=== PATIENT | female | born 1980 | race Caucasian/White ===

== ENCOUNTER 2017-02-02 08:32 | Emergency (ER) | payer OTHER ==
[~2017-02-02] VITALS: Ht 170.2 cm; Wt 84.5 kg
[~2017-02-02 08:32] MED LIST: CIPRO500 MG PO; FLOMAX0.4 MG PO; FOLIC ACID0.4 MG PO; MOTRIN800 MG PO; OMEPRAZOLE40 M1 PO; PERCOCET 5/31 TABLET PO; PRENATAL TABLE1 EAC3 PO; PRILOSEC20 MG PO; VALTREX1000 MG PO; ZOFRAN ODT4 MG PO
[2017-02-02] MEDS ORDERED: HUMIRA40 MG/0.8 SC (09:57)
[2017-02-02] MEDS ORDERED: DOXYCYCLINE HY100 MG PO (09:57)
[2017-02-02] MEDS ORDERED: RITALIN LA30 MG PO (09:58)
[2017-02-02] MEDS ORDERED: BRINTELLIX10 MG PO (09:58)
[2017-02-02] MEDS ORDERED: METHIMAZOLE5 MG PO (09:59)
[2017-02-02] MEDS ORDERED: MEDROL DOSEPAK4 MG PO (11:17)
[2017-02-02 11:42] VITALS: BP 134/94
== END 2017-02-02 11:43 | disposition home or self-care (01) ==
LOC: EME 08:32
DX: L12.0 Bullous pemphigoid (principal); Z87.891 Personal history of nicotine dependence
CPT/HCPCS: 99281; 99284; J7512

== ENCOUNTER 2017-08-22 19:36 | Emergency (ER) | payer OTHER ==
[~2017-08-22] VITALS: Ht 170.2 cm; Wt 89.5 kg
[~2017-08-22 19:36] MED LIST changes: +BRINTELLIX10 MG PO; +DOXYCYCLINE HY100 MG PO; +HUMIRA40 MG/0.8 SC; +MEDROL DOSEPAK4 MG PO; +METHIMAZOLE5 MG PO; +RITALIN LA30 MG PO
[2017-08-22 19:52] VITALS: BP 130/67
[2017-08-22 19:54] VITALS: BP 127/65
[2017-08-22 21:48] LABS: HEMATOCRIT 35.3 % (36.0-46.0); HEMOGLOBIN 11.9 G/DL (11.9-15.5); MCH 29.5 PG (29.0-34.0); MCHC 33.7 G/DL (30.0-36.0); MCV 87.4 FL (83-99); PLATELET COUNT 263 K/uL (156-360); RBC DIS.WIDTH-CV 13.2 % (11.8-14.6); RBC DIS.WIDTH-SD 41.2 % (39-53); RED BLOOD COUNT 4.04 M/uL (3.80-5.20)
[2017-08-22 21:51] LABS: CHLORIDE 108 mEq/L (99-109); POTASSIUM 3.5 mEq/L (3.7-5.4); SODIUM 134 mEq/L (136-147)
[2017-08-22 21:53] LABS: GLUCOSE 89 mg/dL (70-99)
[2017-08-22 21:57] LABS: CREATININE 0.6 mg/dL (0.6-1.3); GFR ESTIMATE (CALCULATED) > 59 mL/min/
[2017-08-22 21:58] LABS: UREA NITROGEN (BUN) 7 mg/dL (9-23)
[2017-08-22 22:05] LABS: QUANTITATIVE HCG 14027.1 MIU/ML
[2017-08-22 22:26] LABS: ALBUMIN 3.3 g/dL (3.2-4.8)
[2017-08-22 22:28] LABS: TOTAL PROTEIN 7.4 g/dL (6.4-8.3)
[2017-08-22 22:30] LABS: TOTAL BILIRUBIN 0.2 mg/dL (0.0-1.0)
[2017-08-22 22:31] LABS: ALKALINE PHOSPHATASE 96 IU/L (3-129)
[2017-08-22 22:34] LABS: ALT (GPT) 12 IU/L (3-49); AST (GOT) 13 IU/L (2-34); DIRECT BILIRUBIN 0.2 mg/dL (0.0-0.3)
[2017-08-22 23:12] LABS: APPEARANCE CLEAR ((CLEAR)); BILIRUBIN NEGATIVE; BLOOD SMALL; COLOR YELLOW ((YELLOW)); GLUCOSE (STRIP) NEGATIVE; KETONES 5; LEUKOCYTES LARGE; NITRITE NEGATIVE; PROTEIN (STRIP) NEGATIVE; SPECIFIC GRAVITY 1.009 (1.000-1.030); UROBILINOGEN 0.2 MG/DL (0.2-1.0)
[2017-08-22 23:32] LABS: BACTERIA RARE /HPF; EPITHELIAL CELLS RARE /HPF; MUCUS TRACE /LPF; UCUL ADDED? YES
[2017-08-22] MEDS ORDERED: REGLAN10 MG PO (23:46)
[2017-08-23 00:06] VITALS: BP 118/51
== END 2017-08-23 00:13 | disposition home or self-care (01) ==
LOC: LDRP-OP 19:36 → EME 19:36 → 2WEST 19:38 → LDRP-OP 19:38 → EDSTATUS 20:42 → EME 08-23 00:13
PROVIDERS: Nurse Practitioner Family
DX: O21.2 Late vomiting of pregnancy (principal); O99.613 Diseases of the digestive system complicating pregnancy, third trimester; K59.00 Constipation, unspecified; R10.84 Generalized abdominal pain; Z87.442 Personal history of urinary calculi; Z88.0 Allergy status to penicillin; Z87.891 Personal history of nicotine dependence; Z3A.28 28 weeks gestation of pregnancy
CPT/HCPCS: 59025; 80048; 80053; 80076; 81003; 84702; 85027; 87077; 87086; 87186; J2405; J7030

== ENCOUNTER 2017-10-01 10:08 | Outpatient (CLI) | payer OTHER ==
[~2017-10-01 10:08] MED LIST changes: +REGLAN10 MG PO
[2017-10-01 10:16] VITALS: BP 139/73
[2017-10-01 10:51] LABS: APPEARANCE CLOUDY ((CLEAR)); BILIRUBIN NEGATIVE; BLOOD LARGE; COLOR YELLOW ((YELLOW)); GLUCOSE (STRIP) NEGATIVE; KETONES 5; LEUKOCYTES LARGE; NITRITE NEGATIVE; PROTEIN (STRIP) 30; SPECIFIC GRAVITY 1.015 (1.000-1.030); UROBILINOGEN 0.2 MG/DL (0.2-1.0)
[2017-10-01 11:18] LABS: BACTERIA RARE /HPF; EPITHELIAL CELLS 1+ /HPF; MUCUS NONE SEEN /LPF; RED BLOOD CELLS TNTC /HPF (0-5); UCUL ADDED? YES
[2017-10-01 11:41] LABS: BASOPHIL (%) 0.5 % (0-1); BASOPHIL COUNT 0.1 K/uL (0-0.1); EOSINOPHIL (%) 0.8 % (0-5); EOSINOPHIL COUNT 0.1 K/uL (0-0.3); HEMATOCRIT 33.1 % (36.0-46.0); HEMOGLOBIN 10.7 G/DL (11.9-15.5); IMMATURE GRANULOCYTE (%) 1.9 % (0.0-0.7); LYMPHOCYTE (%) 13.6 % (15-42); LYMPHOCYTE COUNT 2.1 K/uL (1.0-2.8); MCH 28.5 PG (29.0-34.0); MCHC 32.3 G/DL (30.0-36.0); MCV 88.3 FL (83-99); MONOCYTE (%) 7.3 % (3-12); MONOCYTE COUNT 1.1 K/uL (0-0.8); NEUTROPHIL (%) 75.9 % (45-76); NEUTROPHIL COUNT 11.8 K/uL (1.8-6.4); PLATELET COUNT 240 K/uL (156-360); RBC DIS.WIDTH-CV 13.4 % (11.8-14.6); RBC DIS.WIDTH-SD 43.8 % (39-53); RED BLOOD COUNT 3.75 M/uL (3.80-5.20); WHITE BLOOD COUNT 15.6 K/uL (4.1-10.2)
[2017-10-01 15:08] VITALS: BP 131/74
[2017-10-01 18:21] VITALS: BP 124/55
[2017-10-01 19:51] VITALS: BP 108/56
[2017-10-01 20:57] VITALS: BP 114/54
[2017-10-01 23:29] VITALS: BP 112/55
[2017-10-02 02:59] VITALS: BP 100/52
[2017-10-02 07:10] LABS: BASOPHIL (%) 0.4 % (0-1); BASOPHIL COUNT 0.1 K/uL (0-0.1); EOSINOPHIL (%) 0.7 % (0-5); EOSINOPHIL COUNT 0.1 K/uL (0-0.3); HEMATOCRIT 29.1 % (36.0-46.0); HEMOGLOBIN 9.3 G/DL (11.9-15.5); IMMATURE GRANULOCYTE (%) 1.5 % (0.0-0.7); LYMPHOCYTE (%) 12.6 % (15-42); LYMPHOCYTE COUNT 1.5 K/uL (1.0-2.8); MCH 28.2 PG (29.0-34.0); MCV 88.2 FL (83-99); MONOCYTE (%) 7.2 % (3-12); MONOCYTE COUNT 0.9 K/uL (0-0.8); NEUTROPHIL (%) 77.6 % (45-76); NEUTROPHIL COUNT 9.5 K/uL (1.8-6.4); PLATELET COUNT 191 K/uL (156-360); RBC DIS.WIDTH-CV 13.5 % (11.8-14.6); RBC DIS.WIDTH-SD 43.8 % (39-53); WHITE BLOOD COUNT 12.3 K/uL (4.1-10.2)
[2017-10-02 07:41] LABS: ALBUMIN 2.4 G/DL (3.2-4.8); ALKALINE PHOSPHATASE 77 IU/L (3-129); ALT (GPT) 10 IU/L (3-49); AST (GOT) 15 IU/L (2-34); CHLORIDE 109 MEQ/L (99-109); CREATININE 0.5 MG/DL (0.6-1.3); GFR ESTIMATE (CALCULATED) > 59 mL/min/; GLUCOSE 69 mg/dL (70-99); POTASSIUM 3.9 MEQ/L (3.7-5.4); SODIUM 140 MEQ/L (136-147); TOTAL BILIRUBIN 0.4 MG/DL (0.0-1.0); TOTAL PROTEIN 5.6 G/DL (6.4-8.3); UREA NITROGEN (BUN) 5 mg/dL (9-23)
[2017-10-02 07:58] VITALS: BP 118/62
[2017-10-02 12:23] VITALS: BP 117/58
[2017-10-02] MEDS ORDERED: CEPHALEXIN500 M1 PO (15:21)
== END 2017-10-02 15:35 | disposition home or self-care (01) ==
LOC: LDRP-OP 10:08 → 2WEST 10:09
PROVIDERS: Nurse Practitioner; Obstetrics & Gynecology
DX: O23.03 Infections of kidney in pregnancy, third trimester (principal); Z87.440 Personal history of urinary (tract) infections; O98.813 Other maternal infectious and parasitic diseases complicating pregnancy, third trimester; B95.1 Streptococcus, group B, as the cause of diseases classified elsewhere; O99.613 Diseases of the digestive system complicating pregnancy, third trimester; K50.90 Crohn's disease, unspecified, without complications; O99.283 Endocrine, nutritional and metabolic diseases complicating pregnancy, third trimester; O99.353 Diseases of the nervous system complicating pregnancy, third trimester; G43.909 Migraine, unspecified, not intractable, without status migrainosus; O99.343 Other mental disorders complicating pregnancy, third trimester; F32.9 Major depressive disorder, single episode, unspecified; F41.9 Anxiety disorder, unspecified; F90.9 Attention-deficit hyperactivity disorder, unspecified type; Z87.442 Personal history of urinary calculi; Z3A.34 34 weeks gestation of pregnancy; Z79.899 Other long term (current) drug therapy; O09.523 Supervision of elderly multigravida, third trimester
CPT/HCPCS: 59025; 74018; 76770; 76818; 80053; 81003; 82731; 85025; 87077; 87086; 87186; G0378; J0696; J1170; J2405; J2550; J7120

== ENCOUNTER 2017-10-30 13:20 | Inpatient (IN) | payer OTHER ==
[2017-10-30] VITALS (11 sets, daily range): BP systolic 123–150; BP diastolic 61–81
[~2017-10-30] VITALS: Ht 170.2 cm; Wt 94.3 kg
[~2017-10-30 13:20] MED LIST changes: +CEPHALEXIN500 M1 PO
[2017-10-30 14:30] LABS: BASOPHIL (%) 0.4 % (0-1); BASOPHIL COUNT 0.1 K/uL (0-0.1); EOSINOPHIL (%) 0.7 % (0-5); EOSINOPHIL COUNT 0.1 K/uL (0-0.3); HEMATOCRIT 31.4 % (36.0-46.0); HEMOGLOBIN 10.2 G/DL (11.9-15.5); IMMATURE GRANULOCYTE (%) 1.8 % (0.0-0.7); LYMPHOCYTE (%) 11.3 % (15-42); LYMPHOCYTE COUNT 1.8 K/uL (1.0-2.8); MCH 27.8 PG (29.0-34.0); MCHC 32.5 G/DL (30.0-36.0); MCV 85.6 FL (83-99); MONOCYTE (%) 6.8 % (3-12); MONOCYTE COUNT 1.1 K/uL (0-0.8); NEUTROPHIL COUNT 12.4 K/uL (1.8-6.4); RBC DIS.WIDTH-CV 13.8 % (11.8-14.6); RBC DIS.WIDTH-SD 42.9 % (39-53); RED BLOOD COUNT 3.67 M/uL (3.80-5.20); WHITE BLOOD COUNT 15.7 K/uL (4.1-10.2)
[2017-10-30 14:48] LABS: PLATELET COUNT 250 K/uL (156-360)
[2017-10-30 18:30] LABS: AMPHETAMINE NEGATIVE (500 ng/mL); BARBITURATES NEGATIVE (200 ng/mL); BENZODIAZEPINES NEGATIVE (150 ng/mL); BUPRENORPHINE NEGATIVE (10 ng/mL); COCAINE NEGATIVE (150 ng/mL); METHADONE NEGATIVE (200 ng/mL); METHAMPHETAMINE NEGATIVE (500 ng/mL); OPIATES (MORPHINE) NEGATIVE (100 ng/mL); OXYCODONE NEGATIVE (100 ng/mL); PHENCYCLIDINE NEGATIVE (25 ng/mL); PROPOXYPHENE NEGATIVE (300 ng/mL); THC CANNABINOIDS NEGATIVE (50 ng/mL); TRICYCLIC ANTIDEPRESSANTS NEGATIVE (300 ng/mL)
[2017-10-31] VITALS (21 sets, daily range): BP systolic 104–139; BP diastolic 51–70
[2017-10-31] MEDS ORDERED: IBUPROFEN800 MG PO (11:33)
[2017-11-01 06:33] LABS: BASOPHIL (%) 0.5 % (0-1); BASOPHIL COUNT 0.1 K/uL (0-0.1); EOSINOPHIL (%) 0.9 % (0-5); EOSINOPHIL COUNT 0.1 K/uL (0-0.3); HEMATOCRIT 29.7 % (36.0-46.0); HEMOGLOBIN 9.7 G/DL (11.9-15.5); IMMATURE GRANULOCYTE (%) 1.7 % (0.0-0.7); LYMPHOCYTE (%) 17.1 % (15-42); LYMPHOCYTE COUNT 2.2 K/uL (1.0-2.8); MCH 28.3 PG (29.0-34.0); MCHC 32.7 G/DL (30.0-36.0); MCV 86.6 FL (83-99); MONOCYTE (%) 6.6 % (3-12); MONOCYTE COUNT 0.8 K/uL (0-0.8); NEUTROPHIL (%) 73.2 % (45-76); NEUTROPHIL COUNT 9.3 K/uL (1.8-6.4); PLATELET COUNT 203 K/uL (156-360); RBC DIS.WIDTH-SD 43.4 % (39-53); RED BLOOD COUNT 3.43 M/uL (3.80-5.20); WHITE BLOOD COUNT 12.6 K/uL (4.1-10.2)
[2017-11-02 07:18] VITALS: BP 130/59
== END 2017-11-02 12:51 | disposition home or self-care (01) | DRG 775 ==
LOC: LDRP-OP 13:20 → 2WEST 13:21 → LDRP-OP 12-13 18:10
PROVIDERS: Advanced Practice Midwife; Midwife
PROC: 3E033VJ Introduction of Other Hormone into Peripheral Vein, Percutaneous Approach (ICD-10-PCS; principal; 2017-10-30)
PROC: 3E0P7VZ Introduction of Hormone into Female Reproductive, Via Natural or Artificial Opening (ICD-10-PCS; principal; 2017-10-30)
PROC: 3E0R3BZ Introduction of Anesthetic Agent into Spinal Canal, Percutaneous Approach (ICD-10-PCS; 2017-10-31)
PROC: 10907ZC Drainage of Amniotic Fluid, Therapeutic from Products of Conception, Via Natural or Artificial Opening (ICD-10-PCS; 2017-10-31)
PROC: 10E0XZZ Delivery of Products of Conception, External Approach (ICD-10-PCS; 2017-10-31)
PROC: 00HU33Z Insertion of Infusion Device into Spinal Canal, Percutaneous Approach (ICD-10-PCS; 2017-10-31)
DX: O41.03X0 Oligohydramnios, third trimester, not applicable or unspecified (principal); O99.824 Streptococcus B carrier state complicating childbirth; O99.344 Other mental disorders complicating childbirth; Z37.0 Single live birth; Z3A.38 38 weeks gestation of pregnancy; F41.9 Anxiety disorder, unspecified; F32.9 Major depressive disorder, single episode, unspecified; F90.9 Attention-deficit hyperactivity disorder, unspecified type; E07.9 Disorder of thyroid, unspecified; O99.284 Endocrine, nutritional and metabolic diseases complicating childbirth
CPT/HCPCS: 85025; C1755; G0378; J0595; J2405; J3010; J3370; J7120; S0020